=== PATIENT | female | born 1995 | race Caucasian/White ===

== ENCOUNTER 2018-03-06 01:16 | Emergency (ER) | payer BC ==
[~2018-03-06] VITALS: Ht 154.9 cm; Wt 50.0 kg
[2018-03-06] MEDS ORDERED: ETHI1TAB26 PO (01:38)
[2018-03-06] MEDS ORDERED: METH54TA4 PO (01:38)
[2018-03-06 01:45] LABS: MICROSCOPIC NOT IND
[2018-03-06 01:46] LABS: CULTURE INDICATED? NO
[2018-03-06] MEDS ORDERED: MORPHINE SULFATE 4 MG/ML, 1ML IVPush PRN (02:00)
[2018-03-06] MEDS ORDERED: ONDANSETRON 2MG/ML, 2ML IVPush ONE (02:00)
[2018-03-06] MEDS ORDERED: SODIUM CHLORIDE 0.9% 1,000ML IVBOLUS ONE (02:00)
[2018-03-06 02:08] LABS: AMPHETAMINE SCREEN, URINE Negative (Negative); BARBITURATE SCREEN, URINE Negative (Negative); BENZODIAZEPINE SCREEN, URINE Negative (Negative); CANNABINOID SCREEN, URINE Negative (Negative); COCAINE SCREEN, URINE Negative (Negative); METHADONE SCREEN, URINE Negative (Negative); OPIATE SCREEN, URINE Negative (Negative)
[2018-03-06 02:09] LABS: BASOPHILS # (AUTO) 0.01 x10^3/uL (0-0.1); BASOPHILS % (AUTO) 0 % (0-1); EOSINOPHILS # (AUTO) 0.03 x10^3/uL (0-0.4); EOSINOPHILS % (AUTO) 0 % (1-7); LYMPHOCYTES # (AUTO) 0.81 x10^3/uL (1-3.4); LYMPHOCYTES % (AUTO) 9 % (22-44); MD NO; MEAN CORPUSCULAR HEMOGLOBIN 26.3 pg (27.0-34.8); MEAN CORPUSCULAR HGB CONC 32.9 g/dL (32.4-35.8); MEAN CORPUSCULAR VOLUME 79.9 fL (80-100); MEAN PLATELET VOLUME 8.8 fL (7.4-10.4); MONOCYTES # (AUTO) 0.33 x10^3/uL (0.2-0.8); MONOCYTES % (AUTO) 4 % (2-9); NEUTROPHILS # (AUTO) 8.31 x10^3/uL (1.8-6.8); NEUTROPHILS % (AUTO) 88 % (42-75); PLATELET COUNT 273 x10^3/uL (130-400); RED BLOOD COUNT 5.16 x10^6/uL (3.82-5.3); RED CELL DISTRIBUTION WIDTH 16.9 % (9.6-15.2)
[2018-03-06 02:19] LABS: ALANINE AMINOTRANSFERASE 23 U/L (12-78); ALBUMIN 3.2 g/dL (3.4-5.0); ANION GAP 9 mmol/L (5-15); CALCIUM 8.1 mg/dL (8.5-10.1); CHLORIDE 109 mmol/L (98-107); CREATININE 0.75 mg/dL (0.55-1.02)
[2018-03-06] MEDS ORDERED: ONDANSETRON 2MG/ML, 2ML ONE (02:19)
[2018-03-06] MEDS ORDERED: MORPHINE SULFATE 4 MG/ML, 1ML ONE (02:19)
[2018-03-06 02:21] LABS: ALKALINE PHOSPHATASE 74 U/L (45-117); BILIRUBIN,TOTAL 0.4 mg/dL (0.2-1.0)
[2018-03-06 03:44] VITALS: BP 114/85
== END 2018-03-06 04:49 | disposition home or self-care (01) ==
LOC: ED 02:06
DX: K52.9 Noninfective gastroenteritis and colitis, unspecified (principal); E86.0 Dehydration; R11.2 Nausea with vomiting, unspecified
CPT/HCPCS: 36415; 74177; 80053; 80307; 81003; 81025; 83690; 85025; 96361; 96374; 99285; J2405; J7030